=== PATIENT | female | born 1980 | race Caucasian/White ===

== ENCOUNTER 2018-07-01 06:51 | Emergency (ER) | payer MEDICAID ==
[~2018-07-01] VITALS: Ht 154.9 cm; Wt 56.7 kg
[2018-07-01 06:56] VITALS: Ht 154.9 cm; Wt 56.7 kg
[2018-07-01 08:02] LABS: BASOPHIL % 0.6 % (0-2); RED CELL DISTRIBUTION WIDTH 12.5 % (11.5-14.5)
[2018-07-01 08:05] LABS: PLATELET COUNT 212 x10^3mcL (130-400)
[2018-07-01 08:32] LABS: AMPHETAMINE QUAL UR NONE DETECTED (See below)
[2018-07-01 08:40] LABS: ALBUMIN 4.1 g/dL (3.4-5.0); ALKALINE PHOSPHATASE 74 U/L (46-116); ALT/SGPT 24 U/L (14-59); AST/SGOT 27 U/L (15-37); BILIRUBIN TOTAL 0.6 mg/dL (0.20-1.00); CALCIUM 9.7 mg/dL (8.5-10.1); CARBON DIOXIDE 14.9 mmol/L (21-32); CHLORIDE SERUM 106 mmol/L (98-107); GFR1 > 60 mL/min; GLUCOSE SERUM 113 mg/dL (74-106); SODIUM SERUM 140 mmol/L (136-145); TOTAL PROTEIN, SERUM 8.1 g/dL (6.4-8.2)
[2018-07-01 08:49] LABS: POTASSIUM SERUM 2.9 mmol/L (3.5-5.1)
[2018-07-01 11:28] VITALS: BP 161/88
== END 2018-07-01 11:28 | disposition home or self-care (01) ==
LOC: ED 06:51
PROVIDERS: Emergency Medicine
DX: E87.6 Hypokalemia (principal); E86.0 Dehydration; R53.1 Weakness
CPT/HCPCS: G0480; J1885; J2060; J3480; J7030; Q0092